=== PATIENT | male | born 1955 | race Caucasian/White ===

== ENCOUNTER 2017-05-20 02:00 | Emergency (ER) | payer BC, MEDICAID ==
[~2017-05-20] VITALS: Ht 177.8 cm; Wt 86.0 kg
[2017-05-20 02:08] VITALS: Ht 177.8 cm; Wt 86.0 kg
--- NOTE | 2017-05-20 03:58 | ERA ---
ER Documentation Chief Complaint Date/Time DATE: 05/20/17 TIME: 03:58 Chief Complaint abd pain HPI The patient is a 62-year-old male, resenting to the ER because of abdominal pain for 1 day. He has been drinking for the last 5 days.. The abdominal pain is diffuse, vague. He has similar symptoms previously from drinking, he complains of vomiting some mucus and having had loose bowel movement for 1 day. He denies fever, chills, neck pain, chest pain, dyspnea. He does not smoke or do any illicit drug. His last drink was about 4 hours prior to arrival Past medical history: Dyslipidemia, hypertension Past surgical history: Right knee arthroscopy ROS All systems reviewed and are negative except as per history of present illness. Medications Home Meds Active Scripts Ondansetron (Ondansetron Odt) 4 Mg Tab.rapdis, 4 MG PO Q6H Y for NAUSEA AND/OR VOMITING, #10 TAB Prov:CLAIRE RIVERA MD 05/20/17 Pantoprazole (Protonix) 40 Mg Tabec, 40 MG PO DAILY, #10 TAB Prov:CLAIRE RIVERA MD 05/20/17 Reported Medications Atorvastatin* (Atorvastatin*) 40 Mg Tablet, 40 MG PO QHS, #30 TAB 05/20/17 Losartan Potassium* (Losartan Potassium*) 50 Mg Tablet, 50 MG PO DAILY, TAB 05/20/17 Allergies Allergies: Coded Allergies: No Known Allergy (Unverified , 05/20/17) PMhx/Soc History of Surgery: Yes (RIGHT KNEE SURGERY) Anesthesia Reaction: No Hx Neurological Disorder: No Hx Respiratory Disorders: No Hx Cardiac Disorders: No Hx Psychiatric Problems: No Hx Miscellaneous Medical Probl: No Hx Alcohol Use: No Hx Substance Use: No Hx Tobacco Use: No Physical Exam Vitals Vital Signs Date Time Temp Pulse Resp B/P Pulse Ox O2 Delivery O2 Flow Rate FiO2 05/20/17 04:59 72 20 142/87 100 Room Air 05/20/17 04:08 76 20 156/93 100 Room Air 05/20/17 02:08 97.6 82 20 137/86 100 Physical Exam Const: No acute distress. Head: Atraumatic. Eyes: Normal Conjunctiva. ENT: Normal External Ears, Nose and Mouth. Neck: Full range of motion. No meningismus. Resp: Clear to auscultation bilaterally. Cardio: Regular rate and rhythm. Abd: Soft, non distended, normal bowel sounds, mild epigastric tenderness, no right lower quadrant, right upper quadrant, rigidity, rebound CVA tenderness Skin: No petechiae or rashes. Back: No midline or flank tenderness. Ext: No cyanosis, or edema. Neur: Awake and alert. No focal deficit Psych: Normal Mood and Affect. Result Diagram: 05/20/17 0417 05/20/17 0417 Results 24 hrs Laboratory Tests Test 05/20/17 04:17 05/20/17 04:27 White Blood Count 7.510^3/ul Red Blood Count 4.8810^6/ul Hemoglobin 15.8g/dl Hematocrit 43.7% Mean Corpuscular Volume 89.5fl Mean Corpuscular Hemoglobin 32.4pg Mean Corpuscular Hemoglobin Concent 36.2g/dl Red Cell Distribution Width 11.9% Platelet Count 50853^3/UL Mean Platelet Volume 8.4fl Neutrophils % 73.2% Lymphocytes % 18.0% Monocytes % 6.9% Eosinophils % 0.8% Basophils % 0.8% Nucleated Red Blood Cells % 0.0/100WBC Neutrophils # 5.510^3/ul Lymphocytes # 1.410^3/ul Monocytes # 0.510^3/ul Eosinophils # 0.110^3/ul Basophils # 0.110^3/ul Nucleated Red Blood Cells # 0.010^3/ul Sodium Level 144mmol/L Potassium Level 3.8mmol/L Chloride Level 104mmol/L Carbon Dioxide Level 16mmol/L Anion Gap 28 Blood Urea Nitrogen 15mg/dl Creatinine 0.94mg/dl Glucose Level 80mg/dl Calcium Level 8.2mg/dl Total Bilirubin 0.8mg/dl Direct Bilirubin 0.00mg/dl Indirect Bilirubin 0.8mg/dl Aspartate Amino Transf (AST/SGOT) 116IU/L Alanine Aminotransferase (ALT/SGPT) 100IU/L Alkaline Phosphatase 112IU/L Total Protein 7.5g/dl Albumin 4.1g/dl Globulin 3.40g/dl Albumin/Globulin Ratio 1.20 Lipase 27U/L Bedside Urine pH (LAB) 5.5 Bedside Urine Protein (LAB) Negative Bedside Urine Glucose (UA) Negative Bedside Urine Ketones (LAB) Trace Bedside Urine Blood 2+ Bedside Urine Nitrite (LAB) Negative Bedside Urine Leukocyte Esterase (L Negative Current Medications Medications (Trade) Dose Ordered Sig/Yo Route PRN Reason Start Time Stop Time Status Last Admin Dose Admin Morphine Sulfate (morphine) 4 mg ONCE STAT IV 05/20/17 04:06 05/20/17 04:10 DC 05/20/17 04:25 Ondansetron HCl (Zofran Inj) 4 mg ONCE STAT IV 05/20/17 04:06 05/20/17 04:10 DC 05/20/17 04:25 Procedures/MDM MEDICAL MAKING DECISION:The patient is a 62-year-old male, presenting to the ER because of epigastric abdominal pain due to alcohol induced gastritis. He was treated with morphine formula IV for pain, Zofran 4 IV for nausea with good response. He is stable for outpatient follow-up The differential diagnoses considered include but are not limited to cholelithiasis, cholecystitis, cystitis, pancreatitis, hepatitis, gastritis, peptic ulcer disease, gastric ulcer, appendicitis, diverticulitis, cholangitis, choledocholithiasis, partial small bowel obstruction. Departure Diagnosis: Primary Impression: Abdominal pain Additional Impression: Alcohol abuse Condition: Good Comments He was discharged with Protonix and [place] I discussed the findings with the patient. I advised the patient to follow-up with the primary physician in about 1-2 days, sooner if needed and return if any concern. CLAIRE RIVERA MD May 20, 2017 03:58
[2017-05-20] MEDS ORDERED: morphine 4 MG/ML VIAL IV STA (04:06)
[2017-05-20] MEDS ORDERED: ONDANSETRON 4 MG INJ IV STA (04:06)
[2017-05-20 04:23] LABS: URINE BLOOD (Dip) POC 2+ (NEGATIVE)
[2017-05-20 04:38] LABS: BASOPHIL # 0.1 10^3/ul (0.0-0.1); BASOPHILS % 0.8 % (0.0-2.0); EOSINOPHILS # 0.1 10^3/ul (0.0-0.5); EOSINOPHILS % 0.8 % (0.0-7.0); HEMATOCRIT 43.7 % (42.0-52.0); HEMOGLOBIN 15.8 g/dl (14.0-18.0); LYMPHOCYTES # 1.4 10^3/ul (0.8-2.9); MEAN CORPUSCULAR HEMOGLOBIN 32.4 pg (29.0-33.0); MEAN CORPUSCULAR HGB CONC 36.2 g/dl (32.0-37.0); MEAN CORPUSCULAR VOLUME 89.5 fl (82.0-101.0); MEAN PLATELET VOLUME 8.4 fl (7.4-10.4); MONOCYTE # 0.5 10^3/ul (0.3-0.9); MONOCYTES % 6.9 % (0.0-11.0); NEUTROPHIL # 5.5 10^3/ul (1.6-7.5); NEUTROPHILS % 73.2 % (39.0-77.0); PLATELET COUNT 218 10^3/UL (140-415); RED BLOOD COUNT 4.88 10^6/ul (4.70-6.10); RED CELL DISTRIBUTION WIDTH 11.9 % (11.5-14.5); WHITE BLOOD COUNT 7.5 10^3/ul (4.8-10.8)
[2017-05-20] MEDS ORDERED: LOSA50TA6 PO (04:53)
[2017-05-20] MEDS ORDERED: ATOR40TA68 PO (04:53)
[2017-05-20 04:56] LABS: ALBUMIN 4.1 g/dl (3.3-4.9); ALBUMIN/GLOBULIN RATIO 1.2; BILIRUBIN,INDIRECT 0.8 mg/dl (0-1.1); BILIRUBIN,TOTAL 0.8 mg/dl (0.2-1.3); CALCIUM 8.2 mg/dl (8.4-10.2); CREATININE 0.94 mg/dl (0.61-1.24); POTASSIUM 3.8 mmol/L (3.5-5.1); TOTAL PROTEIN 7.5 g/dl (6.1-8.1)
[2017-05-20] MEDS ORDERED: ONDA4TAB14 PO (05:14)
[2017-05-20] MEDS ORDERED: PANT40TA4 PO (05:14)
[2017-05-20 05:26] VITALS: BP 135/88; PULSE 68; RESP 20
== END 2017-05-20 05:28 | disposition home or self-care (01) ==
LOC: E/R 02:00
DX: R10.13 Epigastric pain (principal); F10.10 Alcohol abuse, uncomplicated; I10 Essential (primary) hypertension; R11.10 Vomiting, unspecified
CPT/HCPCS: 36415; 80053; 81003; 83690; 85025; 96374; 96375; 99284; J2270; J2405